=== PATIENT | female | born 1955 | race Caucasian/White ===

== ENCOUNTER → 2016-12-17 | Outpatient (CLI) | payer OTHER ==
--- NOTE | 2016-12-18 11:33 | MM ---
Reason for exam: screening (asymptomatic). Last mammogram was performed 3 years and 6 months ago. History: Patient is postmenopausal and history of other cancer. Family history of breast cancer in mother at age 74, breast cancer in sister at age 56, and breast cancer in aunt. Took hormonal contraceptives for 5 years 2 months beginning at age 45. Taking progesterone for 3 years 4 months beginning at age 54. Physical Findings: A clinical breast exam by your physician is recommended on an annual basis and results should be correlated with mammographic findings. MG 3D Screening Mammo W/Cad Bilateral CC and MLO view(s) were taken. Prior study comparison: June 08, 2013, bilateral digital screening mammo w/CAD. February 19, 2012, bilateral digital screening mammo w/CAD. The breast tissue is extremely dense which could obscure a lesion on mammography. No significant changes when compared with prior studies. ASSESSMENT: Negative, BI-RAD 1 RECOMMENDATION: Routine screening mammogram of both breasts in 1 year.
== END | disposition home or self-care (01) ==
LOC: RADMAMWWP 15:28
PROVIDERS: ATTEND Obstetrics & Gynecology
DX: Z12.31 Encounter for screening mammogram for malignant neoplasm of breast (principal)
CPT/HCPCS: 77063; G0202

== ENCOUNTER → 2018-07-28 | Outpatient (CLI) | payer OTHER ==
--- NOTE | 2018-07-28 16:08 | BD ---
EXAMINATION TYPE: Axial Bone Density DATE OF EXAM: 07/28/2018 COMPARISON: NONE CLINICAL HISTORY: Height: 5 FT 3 IN Weight: 137 FRAX RISK QUESTIONS: RISK FACTORS HISTORY OF: Family History of Osteoporosis: YES Active: YES Postmenopausal woman: AGE 54 Take estrogen and/or progesterone medications: PROGESTERONE AND ESTRADIAL How lon YEARS MEDICATIONS: Thyroid Medications:YES Which medication: ARMOUR THYROID How Long: APPROX 5 YEARS Additional Medications: ARMOUR THYROID, HRT, Additional History: EXAM MEASUREMENTS: Bone mineral densitometry was performed using the [employer]. Bone mineral density as measured about the Lumbar spine is: ----- L1-L4(G/cm2): 0.957 T Score Values are as follows: ----- L2: -2.3 ----- L3: -1.5 ----- L4: -1.8 ----- L1-L4: -1.9 Bone mineral density has: DECREASED -2.0 % since study of: 2015 Bone mineral density about the R hip (g/cm2): 0.764 Bone mineral density about the L hip (g/cm2): 0.806 T Score values are as follows: -----R Neck: -2.0 -----L Neck: -1.7 -----R Total: -1.7 -----L Total: -1.2 Bone mineral density has: INCREASED 0.1 % since study of: 2015 IMPRESSION: Osteopenia (T Score between -2.5 and -1). There is slightly increased risk of fracture and the patient may be considered for treatment. Re-Screen 2-5 years. NOTE: T-SCORE=SD OF THE YOUNG ADULT MEAN.
== END ==
LOC: RADBDWWP 13:37
PROVIDERS: ATTEND Specialist
DX: Z13.820 Encounter for screening for osteoporosis (principal); M85.80 Other specified disorders of bone density and structure, unspecified site
CPT/HCPCS: 77080

== ENCOUNTER → 2021-04-24 | Outpatient (CLI) | payer MEDICARE ==
--- NOTE | 2021-04-25 14:42 | BD ---
EXAMINATION TYPE: Axial Bone Density DATE OF EXAM: 04/24/2021 COMPARISON: 07.10.2018 CLINICAL HISTORY: 65 YR OLD FEMALE.....ICD-10 CODE: M85.88 OTHER DISORDER OF BD Height: 63 Weight: 137 FRAX RISK QUESTIONS: Family History (Parent hip fracture): YES Glucocorticoids (More than 3mos): YES, INJECTIONS, SCALP (Ex: prednisone, prednisolone, methylprednisolone, dexamethasone, and hydrocortisone). History of Fracture in Adulthood: YES RISK FACTORS HISTORY OF: HX OF LT ANKLE AND TOE FX LAST YR Family History of Osteoporosis: YES Postmenopausal woman: YES, AT 54 Take estrogen and/or progesterone medications: YES, FOR 11 YRS Hyperparathyroidism: NO Adrenal Insufficiency: NO MEDICATIONS: Thyroid Medications: YES, FOR 6 YRS , ARMOUR Additional Medications: HRT, THYROID, VIT D , STEROIDAL INJECTIONS Additional History: ALOPECIA, THYROID, HYPERCALCEMIA, EXAM MEASUREMENTS: Bone mineral densitometry was performed using the [employer] System. Bone mineral density as measured about the Lumbar spine is: ----- L1-L4(G/cm2): 0.958 T Score Values are as follows: ----- L1: -2.0 ----- L2: -2.2 ----- L3: -1.7 ----- L4: -1.8 ----- L1-L4: -1.9 Bone mineral density has: Decreased -2.1% since study of: 07.10.2018 Bone mineral density about the R hip (g/cm2): 0.795 Bone mineral density about the L hip (g/cm2): 0.845 T Score values are as follows: -----R Neck: -2.1 -----L Neck: -1.9 -----R Total: -1.7 -----L Total: -1.3 Bone mineral density has: Decreased -1.0% since study of: 07.10.2018 FRAX%s: THERE IS A 46.0% CHANCE FOR A MAJOR OSTEOPOROTIC FX AND A 6.5% FOR HIP.....PROBABILITY FOR FX IN 10 YRS TIME IMPRESSION: Osteopenia (T Score between -2.5 and -1). There is slightly increased risk of fracture and the patient may be considered for treatment. Re-Screen 2-5 years. NOTE: T-SCORE=SD OF THE YOUNG ADULT MEAN.
--- NOTE | 2021-04-28 09:45 | MM ---
Reason for exam: screening (asymptomatic). Last mammogram was performed 4 years and 4 months ago. History: Patient is postmenopausal and history of other cancer. Family history of breast cancer in mother at age 74, breast cancer in sister at age 56, and breast cancer in aunt. Took hormonal contraceptives for 5 years 2 months beginning at age 45. Taking progesterone for 11 years 4 months beginning at age 54. Physical Findings: A clinical breast exam by your physician is recommended on an annual basis and results should be correlated with mammographic findings. MG 3D Screening Mammo W/Cad Bilateral CC and MLO view(s) were taken. Prior study comparison: December 17, 2016, bilateral MG 3d screening mammo w/cad. The breast tissue is heterogeneously dense. This may lower the sensitivity of mammography. Focal asymmetry left CC, stable. No significant changes when compared with prior studies. ASSESSMENT: Benign, BI-RAD 2 RECOMMENDATION: Routine screening mammogram of both breasts in 1 year.
== END | disposition home or self-care (01) ==
LOC: RADBDWWP 13:12
PROVIDERS: ATTEND Obstetrics & Gynecology
DX: Z12.31 Encounter for screening mammogram for malignant neoplasm of breast (principal); M85.89 Other specified disorders of bone density and structure, multiple sites; Z78.0 Asymptomatic menopausal state
CPT/HCPCS: 77063; 77067; 77080

== ENCOUNTER → 2022-11-13 | Outpatient (CLI) | payer MEDICARE ==
--- NOTE | 2022-11-16 19:02 | MM ---
Reason for Exam: Screening (asymptomatic). Last mammogram was performed 1 year(s) and 7 month(s) ago. Patient History: Menarche at age 14. First Full-Term at age 25. Postmenopausal. Other cancer. Currently using Progesterone, beginning at age 54 for 11 years, 4 months. Hormonal Contraceptives for 5 years, 2 months, from age 45 until age 50. Maternal aunt had breast cancer under age 50. Sister had breast cancer, age 56. Mother had breast cancer, age 74. Risk Values: Sharon 5 year model risk: 5.3%. NCI Lifetime model risk: 17.3%. Prior Study Comparison: 06/08/2013 Bilateral Screening Mammogram, [facility]. 12/17/2016 Bilateral Screening Mammogram, [facility]. 04/24/2021 Bilateral Screening Mammogram, [facility]. Tissue Density: The breast tissue is heterogeneously dense. This may lower the sensitivity of mammography. Findings: Analyzed By CAD. Lobulated 1.2 cm mass 1:00 right breast for which further evaluation is recommended. In the superior left breast, asymmetric density may represent superimposition shadow but incompletely disperses on 3-D images. Further evaluation is recommended. Overall Assessment: Incomplete: need additional imaging evaluation, BI-RAD 0 Management: Special View Mammogram of both breasts. Diagnostic Breast Ultrasound of the right breast. Additional views for the lobulated mass 1:00 right breast as well as the superior asymmetric density on the left. Targeted right breast ultrasound to the 1:[address] [facility] will attempt to contact patient to return for supplemental views and ultrasound if indicated. Electronically signed and approved by: Nikos Mlaik M.D. Radiologist
== END | disposition home or self-care (01) ==
LOC: RADMAMWWP 16:34
PROVIDERS: ATTEND Obstetrics & Gynecology
DX: Z12.31 Encounter for screening mammogram for malignant neoplasm of breast (principal); Z78.0 Asymptomatic menopausal state; Z80.3 Family history of malignant neoplasm of breast
CPT/HCPCS: 77063; 77067

== ENCOUNTER → 2022-11-25 | Outpatient (CLI) | payer MEDICARE ==
--- NOTE | 2022-11-25 13:47 | MM ---
Reason for Exam: Additional evaluation requested from abnormal screening. Last screening mammogram was performed less than 1 month ago. Patient History: Menarche at age 14. First Full-Term at age 25. Postmenopausal. Patient has history of breast feeding. Other cancer. Currently using Progesterone, beginning at age 54 for 11 years, 4 months. Hormonal Contraceptives for 5 years, 2 months, from age 45 until age 50. Maternal aunt had breast cancer under age 50. Sister had breast cancer, age 56. Mother had breast cancer, age 74. Risk Values: Sharon 5 year model risk: 5.3%. NCI Lifetime model risk: 17.3%. Prior Study Comparison: 06/08/2013 Bilateral Screening Mammogram, [facility]. 12/17/2016 Bilateral Screening Mammogram, [facility]. 04/24/2021 Bilateral Screening Mammogram, [facility]. 11/13/2022 Bilateral MG 3D screening mammo w/cad, [facility]. Tissue Density: The breast tissue is heterogeneously dense. This may lower the sensitivity of mammography. Findings: Analyzed By CAD. On the right, a 1.2 cm area of asymmetric density appears to persist on the retroareolar plane on the CC view. Not well localized on the MLO or true lateral views. The left, no persisting abnormality along the superior aspect. Finding suggests superimposition shadow. Overall Assessment: Incomplete: need additional imaging evaluation, BI-RAD 0 Management: Diagnostic Breast Ultrasound of the right breast. Electronically signed and approved by: Nikos Malik M.D. Radiologist
--- NOTE | 2022-11-25 14:31 | USB ---
Reason for Exam: Additional evaluation requested from abnormal screening. Patient History: Menarche at age 14. First Full-Term at age 25. Postmenopausal. Patient has history of breast feeding. Other cancer. Currently using Progesterone, beginning at age 54 for 11 years, 4 months. Hormonal Contraceptives for 5 years, 2 months, from age 45 until age 50. Maternal aunt had breast cancer under age 50. Sister had breast cancer, age 56. Mother had breast cancer, age 74. Risk Values: Sharon 5 year model risk: 5.3%. NCI Lifetime model risk: 17.3%. Technique: Method: Targeted. Prior Study Comparison: 12/17/2016 Bilateral Screening Mammogram, [facility]. 04/24/2021 Bilateral Screening Mammogram, [facility]. 11/13/2022 Bilateral MG 3D screening mammo w/cad, [facility]. Findings: The upper section of the breast of the right breast, the lower section of the breast of the right breast, the axilla of the right breast and the retroareolar of the right breast were scanned. Targeted ultrasound upper and lower aspect of the right breast, 11-1 o'clock and 5-7 o'clock. At the 12:00 position, 4 cm from the nipple, likely mammographic correlate, there is a lobulated 1.2 x 0.8 x 0.6 cm lesion, possible complex cyst or cyst cluster. Probable mammographic correlate. Overall Assessment: Probably benign, BI-RAD 3 Management: Diagnostic Breast Ultrasound of the right breast in 6 months. A clinical breast exam by your physician is recommended on an annual basis and results should be correlated with mammographic findings. This exam should not preclude additional follow-up of suspicious palpable abnormalities. Results were given to the patient verbally at the time of exam. Electronically signed and approved by: Nikos Malik M.D. Radiologist
== END | disposition home or self-care (01) ==
LOC: RADMAMWWP 12:55
PROVIDERS: ATTEND Obstetrics & Gynecology
DX: R92.8 Other abnormal and inconclusive findings on diagnostic imaging of breast (principal); Z78.0 Asymptomatic menopausal state; Z80.3 Family history of malignant neoplasm of breast
CPT/HCPCS: 77066; 76642; G0279; 77062

== ENCOUNTER → 2022-12-28 | Outpatient (CLI) | payer MEDICARE ==
--- NOTE | 2022-12-28 12:02 | US ---
EXAMINATION TYPE: US pelvis complete transvag DATE OF EXAM: 12/28/2022 COMPARISON: NONE CLINICAL INDICATION: Female, 67 years old with history of R10.2 R10.31; pain TECHNIQUE: Transvaginal (TV) and Transabdominal (TA) . EXAM MEASUREMENTS: Uterus: 8.9 x 3.1 x 5.1 cm Endometrial Stripe: .5 cm 1. Uterus: Anteverted Hypoechoic area anterior fundus .9 x 1.0 x .8 cm. May be a small fibroid 2. Endometrium: wnl 3. Right Ovary: Obscured by overlying bowel gas 4. Left Ovary: Obscured by overlying bowel gas 5. Bilateral Adnexa: wnl 6. Posterior cul-de-sac: wnl Urinary bladder is sonolucent. Posterior wall is normal. IMPRESSION: 1. Additional small fundal fibroid anterior uterus.
== END | disposition home or self-care (01) ==
LOC: RADUSWWP 10:51
PROVIDERS: ATTEND Obstetrics & Gynecology
DX: D25.9 Leiomyoma of uterus, unspecified (principal); R10.2 Pelvic and perineal pain; R10.31 Right lower quadrant pain
CPT/HCPCS: 76830; 76856

== ENCOUNTER → 2023-05-17 | Outpatient (CLI) | payer MEDICARE ==
--- NOTE | 2023-05-17 11:28 | USB ---
Reason for Exam: Follow-up at short interval from prior study. Patient History: Menarche at age 14. First Full-Term at age 25. Postmenopausal. Patient has history of breast feeding. Other cancer. Currently using Progesterone, beginning at age 54 for 11 years, 4 months. Hormonal Contraceptives for 5 years, 2 months, from age 45 until age 50. Maternal aunt had breast cancer under age 50. Sister had breast cancer, age 56. Mother had breast cancer, age 74. Risk Values: Sharon 5 year model risk: 5.3%. NCI Lifetime model risk: 17.3%. Technique: Method: Targeted. Prior Study Comparison: 04/24/2021 Bilateral Screening Mammogram, [facility]. 11/13/2022 Bilateral MG 3D screening mammo w/cad, [facility]. 11/25/2022 Bilateral MG 3D work up w/cad MAHIN, [facility]. Findings: The upper outer quadrant of the right breast, the axilla of the right breast and the retroareolar of the right breast were scanned. Probable cyst cluster right 12:00 position appears small in size and currently measures 7 x 8 x 3 mm versus 12 x 6 mm previously. New hypoechoic smoothly marginated lesion with internal echoes at the right 10:00 position 6 cm from the nipple measuring 7 x 5 mm. Follow-up is advised. Overall Assessment: Probably benign, BI-RAD 3 Management: Diagnostic Breast Ultrasound of the right breast in 6 months. A clinical breast exam by your physician is recommended on an annual basis and results should be correlated with mammographic findings. This exam should not preclude additional follow-up of suspicious palpable abnormalities. Results were given to the patient verbally at the time of exam. Electronically signed and approved by: Reinaldo Hutchinson M.D. Radiologis
== END | disposition home or self-care (01) ==
LOC: RADUSWWP 10:47
PROVIDERS: ATTEND Obstetrics & Gynecology
DX: R92.8 Other abnormal and inconclusive findings on diagnostic imaging of breast (principal); Z78.0 Asymptomatic menopausal state; Z80.3 Family history of malignant neoplasm of breast